=== PATIENT | male | born 1930 | race Caucasian/White ===

== ENCOUNTER → 2017-04-03 | Outpatient (CLI) | payer MEDICARE ==
[~2017-04-03] MED LIST: "\\\"WATER PILL\\\"" PO; CARBIDOPA AND L1 TA2 PO; COUMADIN2 MG PO; COUMADIN4 M1 PO; HYDROCODONE BIT1 T11 PO; KEFLEX500 MG PO; METOPROLOL50 MG PO; NORVASC10 MG PO; SIMVASTATIN40 MG PO; SYNTHROID0.05 MG PO; TERAZOSIN HCL10 M1 PO; VICODIN 5/500 505 MG PO
[2017-04-03 13:07] LABS: INTERNATIONAL NORM RATIO 1.7 (2.0-3.5); PROTHROMBIN TIME 18.9 SECONDS (9.0-12.4)
== END | disposition home or self-care (01) ==
LOC: LAB 12:01
PROVIDERS: Internal Medicine
DX: I48.91 Unspecified atrial fibrillation (principal)

== ENCOUNTER 2018-01-17 13:44 | Inpatient (IN) | payer MEDICARE ==
[~2018-01-17] VITALS: Ht 182.9 cm; Wt 105.7 kg
[2018-01-17] VITALS (7 sets, daily range): BP systolic 111–150; BP diastolic 51–79
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
--- NOTE | ~2018-01-17 | PROC NOTE ---
[place], [place] PROCEDURE NOTE [id number] UN[facility] #: [id number] ROOM: 407 DOCTOR: DULCE PERALTA BIRTHDATE: [birth year] DOS: 01/19/2018 REFERRING PHYSICIAN: Dr. Choudhary. RADIOLOGIST: Dr. Souza. HISTORY OF PRESENT ILLNESS: Mr. Hicks is an 87-year-old male admitted to [facility] on 01/17/2018 with shortness of breath. The patient diagnosed with left lower lobe pneumonia and CHF. The patient's significant previous medical history includes failure to thrive, Parkinson's disease, CHF, PR and DM. MES ordered due to concern for choking and recent weight loss. GENERAL COMMENTS: The patient remained awake, alert and cooperative throughout. The patient oriented to name and place. He was positioned upright on a stretcher. The patient with O2 in place via nasal cannula during exam. The patient denied concerns regarding swallowing, but reported that he was previously on a pureed diet. Oral mechanism exam, mild to moderate lingual weakness and incoordination noted, volitional cough mildly reduced for sharpness. The patient is edentulous, otherwise unremarkable. MBSS METHODS: This exam was viewed in the lateral plane. The patient self had the following barium impregnated consistencies, single sips of thin liquids via cup times 4, single sips of nectar thickened liquids via cup x 4, single sips of thin liquids via straw x 1 and teaspoons of pureed x 1, feeding assistance provided with puree. ORAL PHASE: Adequate bolus acceptance with no anterior loss. AP bolus transit mildly prolonged with lingual pumping but adequate. No oral residue appreciated. PHARYNGEAL PHASE: Initiation of the swallow response was timely. HLA was reduced with subsequent incomplete epiglottic closure. Base of tongue to posterior pharyngeal wall contact was reduced. This resulted in mild to moderate amounts of vallecular residue maintained between swallows. Residue then spilled over and was aspirated during subsequent swallows. Aspiration was silent and occurred across all consistencies, increased amount of aspiration noted with larger sips. Patient unable to follow instructions for acute cough. Effortful swallow was trialed, but was ineffective. UES: Unremarkable. IMPRESSION: The patient demonstrated silent aspiration across consistencies likely due to pharyngeal weakness, thickened liquids and compensatory strategies were not effective in reducing aspiration. Findings were discussed with patient, RN, M.D. and patient's [id number]-wpg. Ixpdillb-kq-fok was educated regarding high risk of aspiration and possible sequelae. [place], [place] PROCEDURE NOTE NAME: DEIDRA HICKS UNIT #: [id number] ROOM: 407 DOCTOR: DULCE PERALTA BIRTHDATE: [birth year] Clinician discussed options of n.p.o. versus comfort feeds. Ddlijswc-lx-tan requested continuing feedings for comfort, but also initiating dysphagia treatment. Dr. Frost was informed regarding her preferences and expressed agreement with the following recommendations/plan of care. RECOMMENDATIONS: 1. Per discussion with family and M.D., initiate pureed diet with thin liquids. Select soft solids okay if patient makes request. 2. Initiate dysphagia treatment to improve pharyngeal strength. 3. Aspiration precautions, fully upright, awake and alert for all p.o., small bites/sips and slow rate, frequent oral care. Hold p.o. if change in respiratory status (shortness of breath, etc. PLAN OF CARE: VENDING MACHINE REPAIRER service will follow the patient to provide dysphagia treatment. If patient is discharged, recommend receiving facility, continue treatment unless patient's goals of care change. Dulce Mark CM:PROCNOTE:PROCEDURE NOTE [id number] [id number] DULCE PERALTA
--- NOTE | ~2018-01-17 | PR ---
[place], [place] PROGRESS NOTE NAME: DEIDRA HICKS UNIT #: [id number] ROOM: 407 DOCTOR: MOMO ARCE MD BIRTHDATE: [birth year] DOS: 01/18/2018 SUBJECTIVE: The patient is more alert, awake, and looking better this morning. OBJECTIVE: GENERAL APPEARANCE: The patient is alert and oriented x 3, in no visible distress, obesity. VITAL SIGNS: Blood pressure 131/55, afebrile, heart rate of 94 beats per minute, breathing 20 times per minute. HEENT AND NECK: Exam within normal limits. CARDIOVASCULAR SYSTEM: Heart rate is regular in rate and rhythm. S1 and S2 normally audible. LUNGS: Clear to auscultation. ABDOMEN: Soft, nontender. No obvious organomegaly. Bowel sounds are present. EXTREMITIES: Without significant cyanosis or edema. GENITOURINARY: The patient has sacral and scrotal wounds. IMPRESSION: 1. The patient is with old age, poor health, multiple medical issues and advanced adult failure to thrive along with protein calorie malnutrition. The patient's family will have a discussion with hospice. 2. Diastolic type CHF. The patient is being followed by Cardiology and diuresed. I will check serum electrolytes on daily basis. 3. Left lower lobe pneumonia. The patient is with healthcare facility acquired pneumonia, being treated with antibiotics and he is improving. 4. The patient to be checked for aspiration pneumonia with modified barium swallowing study. 5. Anemia of chronic disease. 6. Benign essential hypertension, treated and controlled. 7. Coronary artery disease of the [place] vessels without chest pains. 8. Parkinson's disease, generalized weakness and adult failure to thrive. The patient remains on Sinemet. 9. Hypothyroidism, treated with levothyroxine. 10. Type 2 diabetes mellitus. Blood sugars are being monitored and treated. 11. Chronic atrial fibrillation. The patient anticoagulated with apixaban. [place], [place] PROGRESS NOTE NAME: DEIDRA HICKS UNIT #: [id number] ROOM: 407 DOCTOR: MOMO ARCE MD BIRTHDATE: [birth year] MOMO ARCE MD CM:PNTRANS [id number] MOMO ARCE MD 01/19/18 0033 interface
--- NOTE | ~2018-01-17 | DS ---
[place], [place] DISCHARGE SUMMARY NAME: DEIDRA HICKS UNIT #: [id number] ROOM: 407 DOCTOR: MOMO ARCE MD BIRTHDATE: [birth year] DOS: 01/19/2018 IMPRESSION: 1. Swallowing dysfunction on modified barium swallow for all types of foods and consistencies. The patient on comfort feeding. 2. Keep the patient physical therapy. 3. Old age, obesity, advance adult failure to thrive and poor prognosis. 4. Diastolic type congestive heart failure, left lower lobe pneumonia, healthcare facility acquired. 5. Aspiration pneumonia. 6. Anemia of chronic disease. 7. Benign essential hypertension. 8. Coronary artery disease of the [place] vessels. 9. Parkinson's disease. 10. Hypothyroidism. 11. Type 2 diabetes mellitus. 12. Chronic atrial fibrillation. The patient has advanced disability, presented to the Emergency Department from [facility] with increased shortness of breath and was found to have left lower lobe pneumonia and congestive heart failure. The patient's family wanted him to be kept comfort care only, but now they do not want a hospice consult, although the patient is to be treated conservatively. Swallowing dysfunction with all types of food and consistencies. As discussed with the patient's power of tax attorney and family, they want the patient to be continued on comfort feeding despite the high risk of aspiration and aspiration pneumonia. Acute over chronic diastolic type CHF, treated with diuresis. Left lower lobe pneumonia and aspiration pneumonia, treated with antibiotics; healthcare facility-acquired pneumonia. Anemia of chronic disease. Coronary artery disease of the [place] vessels without chest pain. Generalized seizure disorder treated with Keppra. No recent seizures. Parkinson's disease. The patient was treated with Sinemet. Generalized weakness and adult failure to thrive and poor prognosis. Hypothyroidism. The patient on thyroid supplements takes levothyroxine. Type 2 diabetes mellitus. Blood sugars are reasonably controlled. Chronic atrial fibrillation. The patient's heart rates are controlled and he is anticoagulated with apixaban. [place], [place] DISCHARGE SUMMARY NAME: DEIDRA HICKS UNIT #: [id number] ROOM: 407 DOCTOR: MOMO ARCE MD BIRTHDATE: [birth year] Situation discussed with nursing staff. The patient's son and wiwlbvcd-hp-mrs who will have his power of tax attorney. One hour time spent on patient's discharge. LABORATORY DATA: Modified barium swallowing results as mentioned above. Blood cultures negative. Normal serum electrolytes. Hemoglobin 10.1, platelets normal, otherwise normal CBC. Echocardiogram showing mild concentric LVH with normal left ventricular systolic function, impaired diastolic function. DISCHARGE MANAGEMENT: Lantus insulin 18 units every morning. No concentrated sweet diet ____ patient stated before attempting to feed. He is high risk for aspiration. Flomax 0.4 mg daily, potassium chloride 30 mEq b.i.d., MiraLax 17 grams daily, Bumex 1 mg b.i.d., sennoside A and B 8.6 mg at bedtime, omeprazole 20 mg at bedtime, mirtazapine 15 mg at bedtime, levothyroxine 75 mcg daily, Keppra 1500 mg b.i.d., Sinemet 25/100 every 8 hours, metoprolol 12.5 mg b.i.d., Percocet 5/325 mg every 4 hours p.r.n. for pain. May use oxygen, titrate to keep pulse ox 90-96%. MOMO ARCE MD CM:DISCHARG [id number] MOMO ARCE MD 01/24/18 0713 interface
--- NOTE | ~2018-01-17 | DS ---
[place], [place] DISCHARGE SUMMARY NAME: DEIDRA HICKS UNIT #: [id number] ROOM: 407 DOCTOR: MOMO ARCE MD BIRTHDATE: [birth year] CM:DISCHARG 1848 [id number] MOMO ARCE MD 01/24/18 0728 WILLIAM [email or web address].[email or web address]
--- NOTE | ~2018-01-17 | WRIGHTHP ---
[place], [place] PATIENT HISTORY AND PHYSICAL EXAM NAME: DEIDRA HICKS [facility] #: [id number] UNIT #: [id number] ROOM: 407 DOCTOR: MOMO ARCE MD BIRTHDATE: [birth year] DOS: 01/17/2018 HISTORY OF PRESENT ILLNESS: The patient is an 87-year-old gentleman sent over from [facility] with increasing shortness of breath to the Emergency Department and he was found to have left lower lobe pneumonia and congestive heart failure on the chest x-ray and recommended for admission and further management. After admission, the patient's family is agreeable to keep him comfortable only and consult hospice because of his advanced and chronic failure to thrive. The patient has been at a nursing facility for some time and despite of treatment he has not improved. No recent complaints of chest pains. He does have some shortness of breath. No GI or urinary symptoms. REVIEW OF SYSTEMS: LUNGS: Increasing shortness of breath. GASTROINTESTINAL: No nausea, vomiting, diarrhea or constipation. CARDIOVASCULAR: No chest pains or palpitations. SOCIAL HISTORY: The patient has been a resident at [facility] recently. ALLERGIES: No known drug allergies. FAMILY HISTORY: Noncontributory. MEDICATIONS: Flomax, potassium, MiraLax, Keppra, Sinemet, Bumex, aspirin, Carafate, sennoside, omeprazole, mirtazapine, levothyroxine, furosemide, metoprolol, apixaban, Lantus insulin, oxycodone. PHYSICAL EXAMINATION: GENERAL: Alert, very weak, in no visible distress, but somewhat short of breath, very weak looking, obesity, generalized weakness.. VITAL SIGNS: Blood pressure 111/60, heart rate 100 beats per minute, breathing 20 times per minute, temperature 99.5 degrees Fahrenheit. HEENT AND NECK: Extraocular movements are intact. Sclerae are anicteric. Oral mucosa is moist and clean. No obvious facial weakness. Neck is supple without any lymphadenopathy. No thyromegaly. No JVD. No carotid arterial bruits. LUNGS: Decreased breath sounds. CARDIOVASCULAR SYSTEM: Heart rate is regular in rate and rhythm. S1 and S2 normally audible. No significant murmur or any other abnormal cardiac sounds. ABDOMEN: Soft, nontender. No obvious organomegaly. Bowel sounds are present. No obvious herniation. EXTREMITIES: The patient has a sacral decubitus stage 2, CENTRAL NERVOUS SYSTEM: Alert and oriented x 3. Cranial nerves II-XII are intact. Speech is normal. The patient is able to move all extremities. Normal muscle strength. Deep tendon reflexes are equal on both sides. Plantars were downgoing. LABORATORY DATA: BUN and creatinine 16 and 1.3. ProBNP at 5300. Normal platelets. Normal serum electrolytes. Hemoglobin ____. [place], [place] PATIENT HISTORY AND PHYSICAL EXAM NAME: [facility]ICKS [facility] [id number] UNIT #: [id number] ROOM: 407 DOCTOR: MOMO ARCE MD BIRTHDATE: [birth year] IMPRESSION AND PLAN: 1. The patient has advanced disability and adult failure to thrive. We will take bedsore precautions, use air mattress and turn him every 2 hours. 2. Acute over chronic diastolic type congestive heart failure with overall advanced failure to thrive, to be treated with diuresis. I have consulted Cardiology and the patient to be treated conservatively. 3. Left lower lobe pneumonia, which is acute, which is healthcare facility acquired pneumonia, to be treated with antibiotics. 4. Anemia of chronic disease with hemoglobin of ____, stable. 5. History of benign essential hypertension. Blood pressures are being monitored and treated accordingly. 6. 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 7. History of generalized seizure disorder. The patient remains on Keppra and without any seizures. 8. Parkinson's disease. The patient is treated with Sinemet. 9. Generalized weakness and disability. Physical therapy have been consulted. 10. Hypothyroidism, treated with levothyroxine. 11. Type 2 diabetes mellitus. Blood sugar is to be monitored and insulin continued. 12. Chronic atrial fibrillation. The patient is anticoagulated with apixaban. 13. The patient's prognosis remains poor. He has advanced adult failure to thrive and family is considering consult with hospice. Employee Relations Representative have been consulted. MOMO ARCE MD CM:HISPHYS:PATIENT HISTORY AND PHYSICAL EXAMINATION [id number] [phone] MOMO ARCE MD 01/17/18 2313 interface
[~2018-01-17 13:44] MED LIST changes: -SYNTHROID0.05 MG PO; +Synthroid,Levo75 MCG PO
[2018-01-17] MEDS ORDERED: ASPIR LOW81 MG PO (13:53)
[2018-01-17] MEDS ORDERED: ERGOCALCIFEROL1 GM PO (13:56)
[2018-01-17] MEDS ORDERED: POTASSIUM CHLO10 MEQ PO (13:57)
[2018-01-17] MEDS ORDERED: LEADER ASPIRIN325 MG PO (13:57)
[2018-01-17] MEDS ORDERED: ELIQUIS2.5 M1 PO (13:58)
[2018-01-17] MEDS ORDERED: REMERON SOLTAB15 MG PO (13:58)
[2018-01-17] MEDS ORDERED: BUMETANIDE1 MG PO ×2 (13:58→17:39)
[2018-01-17] MEDS ORDERED: OMEPRAZOLE20 M2 PO (13:59)
[2018-01-17] MEDS ORDERED: FLOMAX0.4 MG PO (14:00)
[2018-01-17] MEDS ORDERED: SYNTHROID,LEVO75 MCG PO (14:00)
[2018-01-17] MEDS ORDERED: SENNOSIDES8.6 MG PO (14:06)
[2018-01-17] MEDS ORDERED: TOPROL XL25 MG PO (14:06)
[2018-01-17] MEDS ORDERED: GLYCOLAX119 GM PO (14:07)
[2018-01-17] MEDS ORDERED: LEVEMIR100 UNIT/1 SC (14:07)
[2018-01-17] MEDS ORDERED: OXYCODONE5 M1 PO (14:08)
[2018-01-17] MEDS ORDERED: KEPPRA250 MG PO (14:09)
[2018-01-17] MEDS ORDERED: ACETAMINOPHEN325 M2 PO (14:10)
[2018-01-17] MEDS ORDERED: SUCRALFATE1 GM PO (14:10)
[2018-01-17 14:21] LABS: BASO % 0.4 % (0.0-1.0); EOS # 0.1 10*3/uL (0.0-0.4); EOS % 0.9 % (1.0-4.0); HEMATOCRIT 35.6 % (42.0-52.0); HEMOGLOBIN 10.4 g/dl (14.0-18.0); LYMPH # 1.9 10*3/uL (1.3-4.4); LYMPH % 22.6 % (27.0-41.0); MEAN CORPUSCULAR HGB 29.8 pg (27.0-31.0); MEAN CORPUSCULAR HGB CONC 29.2 g/dl (33.0-37.0); MEAN PLATELET VOLUME 9.1 fl (9.6-12.3); MONO # 0.6 10*3/uL (0.1-1.0); MONO % 7.6 % (3.0-9.0); NEUT # 5.7 10*3/uL (2.3-7.9); NEUT % 67.4 % (47.0-73.0); PLATELET COUNT AUTOMATED 298 10*3/uL (130-400); RED BLOOD COUNT 3.49 10*6/uL (4.50-5.90); RED CELL DISTRI WIDTH 16.3 % (0-14.5); WHITE BLOOD COUNT 8.4 10*3/uL (4.8-10.8)
[2018-01-17 14:32] LABS: ACT PARTIAL THROMBO TIME 29.1 SECONDS (20.8-31.5)
[2018-01-17 14:39] LABS: ALBUMIN 2.8 gm/dl (3.1-4.5); CREATININE 1.36 mg/dL (0.70-1.30); POTASSIUM 4.1 mmol/L (3.5-5.1); TOTAL PROTEIN 7.1 gm/dL (6.4-8.2); TROPONIN I 0.026 ng/ml (<0.045)
[2018-01-17 16:00] LABS: BILIRUBIN NEGATIVE (NEGATIVE); BLOOD NEGATIVE (NEGATIVE); CLARITY CLEAR (CLEAR); COLOR YELLOW (YELLOW); GLUCOSE NEGATIVE (NEGATIVE); KETONE NEGATIVE (NEGATIVE); LEUKO ESTERASE NEGATIVE (NEGATIVE); NITRITE NEGATIVE (NEGATIVE); PH 5.5 (5.0-9.0); UROBILINOGEN 0.2 E.U./dl (0.2-1.0)
[2018-01-17 16:17] LABS: BACTERIA TRACE
[2018-01-17 16:18] LABS: RBC 0-2 rbc/hpf (0-2)
[2018-01-17] MEDS ORDERED: ASPIRIN325 MG PO (17:41)
[2018-01-17] MEDS ORDERED: PRAVACHOL40 MG PO (17:43)
[2018-01-17] MEDS ORDERED: Lopressor25 MG PO (17:45)
[2018-01-17] MEDS ORDERED: HUMULIN R500 UNIT/1 SQ (17:49)
[2018-01-18 00:17] VITALS: BP 149/70
[2018-01-18 07:41] LABS: BUN 16 mg/dl (7-24); CHLORIDE 98 mmol/L (98-107); CREATININE 1.13 mg/dL (0.70-1.30); POTASSIUM 3.6 mmol/L (3.5-5.1); SODIUM 142 mmol/L (136-145)
[2018-01-18 08:00] VITALS: BP 103/68
[2018-01-18 12:00] VITALS: BP 110/65
[2018-01-18 16:00] VITALS: BP 131/55
[2018-01-18 20:00] VITALS: BP 117/62
[2018-01-19] VITALS: BP 112/42
[2018-01-19 06:54] LABS: BUN 16 mg/dl (7-24); CHLORIDE 92 mmol/L (98-107); CREATININE 1.08 mg/dL (0.70-1.30); POTASSIUM 3.6 mmol/L (3.5-5.1); SODIUM 139 mmol/L (136-145)
[2018-01-19 07:00] LABS: BASO % 0.4 % (0.0-1.0); EOS # 0.1 10*3/uL (0.0-0.4); HEMATOCRIT 33.8 % (42.0-52.0); HEMOGLOBIN 10.1 g/dl (14.0-18.0); LYMPH # 1.7 10*3/uL (1.3-4.4); LYMPH % 23.7 % (27.0-41.0); MEAN CELL VOLUME 97.4 fl (80.0-94.0); MEAN CORPUSCULAR HGB 29.1 pg (27.0-31.0); MEAN CORPUSCULAR HGB CONC 29.9 g/dl (33.0-37.0); MEAN PLATELET VOLUME 9.8 fl (9.6-12.3); MONO # 0.6 10*3/uL (0.1-1.0); MONO % 8.6 % (3.0-9.0); NEUT # 4.6 10*3/uL (2.3-7.9); NEUT % 64.9 % (47.0-73.0); PLATELET COUNT AUTOMATED 281 10*3/uL (130-400); RED BLOOD COUNT 3.47 10*6/uL (4.50-5.90); RED CELL DISTRI WIDTH 15.8 % (0-14.5); WHITE BLOOD COUNT 7.1 10*3/uL (4.8-10.8)
[2018-01-19 08:00] VITALS: BP 103/52
[2018-01-19 18:00] VITALS: BP 124/60
[2018-01-19] MEDS ORDERED: PERCOCET 5-3251 EACH PO (18:44)
== END 2018-01-19 19:50 | disposition other institution (70) | DRG 291 ==
LOC: ED 13:44 → EDHOLD 15:16 → 4E 15:16
PROVIDERS: Emergency Medicine; Internal Medicine; Internal Medicine Cardiovascular Disease
PROC: BD1BYZZ Fluoroscopy of Mouth/Oropharynx using Other Contrast (ICD-10-PCS; principal; 2018-01-19)
PROC: 5A09357 Assistance with Respiratory Ventilation, Less than 24 Consecutive Hours, Continuous Positive Airway Pressure (ICD-10-PCS; principal; 2018-01-19)
DX: I11.0 Hypertensive heart disease with heart failure (principal); J69.0 Pneumonitis due to inhalation of food and vomit; L89.513 Pressure ulcer of right ankle, stage 3; E46 Unspecified protein-calorie malnutrition; G20 Parkinson's disease; G40.409 Other generalized epilepsy and epileptic syndromes, not intractable, without status epilepticus; I50.33 Acute on chronic diastolic (congestive) heart failure; I48.2 Chronic atrial fibrillation; D63.8 Anemia in other chronic diseases classified elsewhere; Z66 Do not resuscitate; Z96.611 Presence of right artificial shoulder joint; Z51.5 Encounter for palliative care; R62.7 Adult failure to thrive; I25.10 Atherosclerotic heart disease of native coronary artery without angina pectoris; E03.9 Hypothyroidism, unspecified; D72.810 Lymphocytopenia; E66.9 Obesity, unspecified; Z68.33 Body mass index [BMI] 33.0-33.9, adult; Z98.42 Cataract extraction status, left eye; Z98.61 Coronary angioplasty status

== ENCOUNTER 2018-01-28 02:52 | Emergency (ER) | payer MEDICARE ==
[~2018-01-28] VITALS: Ht 180.3 cm; Wt 108.0 kg
[~2018-01-28 02:52] MED LIST changes: +ACETAMINOPHEN325 M2 PO; +ASPIR LOW81 MG PO; +ASPIRIN325 MG PO; +BUMETANIDE1 MG PO; +ELIQUIS2.5 M1 PO; +ERGOCALCIFEROL1 GM PO; +FLOMAX0.4 MG PO; +GLYCOLAX119 GM PO; +HUMULIN R500 UNIT/1 SQ; +KEPPRA250 MG PO; +LEADER ASPIRIN325 MG PO; +LEVEMIR100 UNIT/1 SC; +Lopressor25 MG PO; +OMEPRAZOLE20 M2 PO; +OXYCODONE5 M1 PO; +PERCOCET 5-3251 EACH PO; +POTASSIUM CHLO10 MEQ PO; +PRAVACHOL40 MG PO; +REMERON SOLTAB15 MG PO; +SENNOSIDES8.6 MG PO; +SUCRALFATE1 GM PO; +SYNTHROID,LEVO75 MCG PO; +TOPROL XL25 MG PO
[2018-01-28 03:18] LABS: BILIRUBIN NEGATIVE (NEGATIVE); BLOOD 3+ (NEGATIVE); CLARITY CLOUDY (CLEAR); COLOR YELLOW (YELLOW); GLUCOSE NEGATIVE (NEGATIVE); KETONE NEGATIVE (NEGATIVE); LEUKO ESTERASE 3+ (NEGATIVE); NITRITE NEGATIVE (NEGATIVE); PH 6.5 (5.0-9.0); SPECIFIC GRAVITY 1.015 (1.005-1.030); UROBILINOGEN 0.2 E.U./dl (0.2-1.0)
[2018-01-28 03:24] LABS: WBC TNTC wbc/hpf (0-5)
[2018-01-28 03:32] LABS: BASO % 0.4 % (0.0-1.0); EOS # 0.3 10*3/uL (0.0-0.4); EOS % 3.4 % (1.0-4.0); HEMATOCRIT 31.7 % (42.0-52.0); HEMOGLOBIN 9.4 g/dl (14.0-18.0); LYMPH # 2.3 10*3/uL (1.3-4.4); LYMPH % 31.5 % (27.0-41.0); MEAN CELL VOLUME 98.4 fl (80.0-94.0); MEAN CORPUSCULAR HGB 29.2 pg (27.0-31.0); MEAN CORPUSCULAR HGB CONC 29.7 g/dl (33.0-37.0); MEAN PLATELET VOLUME 9.9 fl (9.6-12.3); MONO # 0.7 10*3/uL (0.1-1.0); MONO % 9.4 % (3.0-9.0); NEUT # 4.1 10*3/uL (2.3-7.9); NEUT % 54.4 % (47.0-73.0); PLATELET COUNT AUTOMATED 302 10*3/uL (130-400); RED BLOOD COUNT 3.22 10*6/uL (4.50-5.90); RED CELL DISTRI WIDTH 15.7 % (0-14.5); WHITE BLOOD COUNT 7.4 10*3/uL (4.8-10.8)
[2018-01-28 03:47] LABS: ALBUMIN 2.4 gm/dl (3.1-4.5); ALKALINE PHOSPHATASE 93 U/L (45-117); BUN 26 mg/dl (7-24); CHLORIDE 102 mmol/L (98-107); CREATININE 1.33 mg/dL (0.70-1.30); LIPASE 117 U/L (73-393); POTASSIUM 4.8 mmol/L (3.5-5.1); SGOT/AST 24 IU/L (3-35); SGPT/ALT < 6 U/L (12-78); SODIUM 145 mmol/L (136-145); TOTAL PROTEIN 6.8 gm/dL (6.4-8.2)
[2018-01-28 03:50] VITALS: BP 136/63
[2018-01-28] MEDS ORDERED: CIPRO250 MG PO (04:52)
== END 2018-01-28 05:15 | disposition home or self-care (01) ==
LOC: ED 02:52
PROVIDERS: Emergency Medicine Emergency Medical Services
DX: R33.9 Retention of urine, unspecified (principal); N39.0 Urinary tract infection, site not specified; Z98.61 Coronary angioplasty status; Z98.890 Other specified postprocedural states; Z79.82 Long term (current) use of aspirin; Z79.899 Other long term (current) drug therapy